=== PATIENT | male | born 1945 | race Asian ===

== ENCOUNTER 2020-12-05 08:16 | Emergency (ER) | payer MEDICARE, MEDICAID ==
[~2020-12-05] VITALS: Ht 162.6 cm; Wt 68.2 kg
[~2020-12-05 08:16] MED LIST: GLIP5 PO; LISI-892 PO; METF-444 PO; SIMV5TAB58 PO
[2020-12-05 08:37] LABS: GLUCOMETER DEV NAME(LOC) ERT.5; GLUCOSE,POINT OF CARE 356 MG/DL (70-110)
[2020-12-05] MEDS ORDERED: SODIUM CHLORIDE 0.9% 2,000 ML IV ONE (09:30)
[2020-12-05] MEDS ORDERED: INSULIN REGULAR, HUMAN 100 UNITS/ML IVP ONE (09:30)
[2020-12-05 09:57] LABS: BASOPHILS % (AUTO) 0.2 % (0.0-2.0); EOSINOPHILS % (AUTO) 1.8 % (1.0-6.0); HEMATOCRIT 39.7 % (41-53); HEMOGLOBIN 13.2 g/dL (13.5-17.5); LYMPHOCYTES # (AUTO) 1.4 K/uL (1.0-4.8); LYMPHOCYTES % (AUTO) 24.1 % (22.0-44.0); MEAN CORPUSCULAR HEMOGLOBIN 30.4 pg (26.0-34.0); MEAN CORPUSCULAR HGB CONC 33.2 G/dL (31.0-37.0); MEAN CORPUSCULAR VOLUME 92 fL (80-100); MONOCYTES # (AUTO) 0.4 K/uL (0.1-1.0); MONOCYTES % (AUTO) 6.2 % (2.0-9.0); NEUTROPHILS % (AUTO) 67.7 % (40.0-70.0); PLATELET COUNT (AUTO) 154 K/uL (150-450); RED BLOOD CELL COUNT(AUTO) 4.33 MIL/uL (4.50-5.90); RED CELL DISTRIBUTION WIDTH 12.4 % (11.5-14.5)
[2020-12-05 10:02] LABS: CALCIUM, TOTAL 9.1 mg/dL (8.8-10.5); CREATININE 1.5 mg/dL (0.60-1.30); POTASSIUM 3.7 mmol/L (3.5-5.1)
[2020-12-05 10:05] LABS: GLUCOMETER DEV NAME(LOC) ERT.5; GLUCOSE,POINT OF CARE 291 MG/DL (70-110)
[2020-12-05 10:07] LABS: ALBUMIN 4.2 g/dL (3.4-5.0); BILIRUBIN,TOTAL 0.6 mg/dL (0.1-1.0); TOTAL PROTEIN, SERUM 8.2 g/dL (6.4-8.2)
[2020-12-05 13:32] VITALS: BP 149/78
== END 2020-12-05 13:33 | disposition home or self-care (01) ==
LOC: EMS 08:16
DX: S00.83XA Contusion of other part of head, initial encounter (principal); E11.65 Type 2 diabetes mellitus with hyperglycemia; E86.0 Dehydration; R55 Syncope and collapse; E11.9 Type 2 diabetes mellitus without complications; E78.00 Pure hypercholesterolemia, unspecified; I10 Essential (primary) hypertension; Z91.14 Patient's other noncompliance with medication regimen; Z79.899 Other long term (current) drug therapy; Z79.84 Long term (current) use of oral hypoglycemic drugs; X58.XXXA Exposure to other specified factors, initial encounter; Y93.89 Activity, other specified; Y92.89 Other specified places as the place of occurrence of the external cause; Y99.8 Other external cause status
CPT/HCPCS: 36415; 71045; 80053; 82962; 84484; 85025; 93005; 96361; 96374; 99285; J1815; J7030

== ENCOUNTER 2024-03-07 06:33 | Emergency (ER) | payer MEDICARE, MEDICAID ==
[~2024-03-07] VITALS: Ht 162.6 cm; Wt 54.5 kg
[~2024-03-07 06:33] MED LIST changes: +CLOT15CR29 TP; +FINA5TAB41 PO; +GABA-1181 PO; -GLIP5 PO; +INSLAN SQ; +INSU100V SQ; -LISI-892 PO; +LOSA-381 PO; -SIMV5TAB58 PO; +TAMS0.4C94 PO; +TERA5CAP4 PO
[2024-03-07 06:41] VITALS: TEMP 98
[2024-03-07] MEDS: SODIUM CHLORIDE 0.9% 1,000 ML IV ONE (08:20)
[2024-03-07] MEDS: BACITRACIN 0.9 GM PACKET OINTMENT TP ONE (08:20)
[2024-03-07] MEDS: MORPHINE SULFATE 2 MG/ML SYRINGE IVP ONE ×2 (08:20→11:50)
[2024-03-07 08:32] LABS: BASOPHILS % (AUTO) 0.1 % (0.0-2.0); LYMPHOCYTES # (AUTO) 0.5 K/uL (1.0-4.8); MONOCYTES # (AUTO) 0.2 K/uL (0.1-1.0); MONOCYTES % (AUTO) 2.4 % (2.0-9.0)
[2024-03-07 08:44] LABS: EOSINOPHILS % (AUTO) 0.1 % (1.0-6.0); HEMATOCRIT 38.1 % (41-53); HEMOGLOBIN 13.3 g/dL (13.5-17.5); LYMPHOCYTES % (AUTO) 6.4 % (22.0-44.0); MEAN CORPUSCULAR HEMOGLOBIN 31.9 pg (26.0-34.0); MEAN CORPUSCULAR HGB CONC 34.9 G/dL (31.0-37.0); MEAN CORPUSCULAR VOLUME 91 fL (80-100); NEUTROPHILS # (AUTO) 7.6 K/uL (1.8-7.7); RED BLOOD CELL COUNT(AUTO) 4.17 MIL/uL (4.50-5.90); RED CELL DISTRIBUTION WIDTH 12.9 % (11.5-14.5); WHITE BLOOD COUNT (AUTO) 8.4 K/uL (4.5-11.0)
[2024-03-07 08:49] LABS: CALCIUM, TOTAL 8.9 mg/dL (8.8-10.5); CREATININE 1.36 mg/dL (0.60-1.30); POTASSIUM 4.6 mmol/L (3.5-5.1)
[2024-03-07 08:59] LABS: TROPONIN I-HIGH SENSITIVITY 8 ng/L (<76)
[2024-03-07] MEDS ORDERED: SODIUM CHLORIDE 0.9% 100 ML ONE (09:07)
[2024-03-07] MEDS ORDERED: IOHEXOL 350 MG/ML 100 ML VIAL ONE (09:07)
[2024-03-07 09:10] LABS: PLATELET COUNT (AUTO) 226 K/uL (150-450)
[2024-03-07] MEDS: LevETIRAcetam 1,000 MG in DEXTROSE 5%-WATER 100 ML IV ONE (09:11)
[2024-03-07 09:13] LABS: APPEARANCE,URINE CLEAR (CLEAR); BILIRUBIN,URINE NEGATIVE (NEGATIVE); COLOR,URINE COLORLESS (YELLOW); GLUCOSE, URINE (UA) >=1000 mg/dL (NEGATIVE); KETONES,URINE =>150 mg/dL (NEGATIVE); LEUKOCYTE ESTERASE ,URINE NEGATIVE (NEGATIVE); NITRATE,URINE NEGATIVE (NEGATIVE); OCCULT BLOOD,URINE NEGATIVE (NEGATIVE); PH,URINE 5.5 (5.0-8.0); PROTEIN,URINE TRACE mg/dL (NEGATIVE); SPECIFIC GRAVITIY, URINE 1.028 (1.003-1.030); UROBILINOGEN,URINE <=1.0 mg/dL (<=1.0)
[2024-03-07 09:14] LABS: ALBUMIN 3.5 g/dL (3.4-5.0); BILIRUBIN,DIRECT 0.3 mg/dL (0.00-0.20); TOTAL PROTEIN, SERUM 7.9 g/dL (6.4-8.2)
[2024-03-07 09:22] LABS: BACTERIA,URINE None Seen /HPF (None Seen); RBC,URINE None Seen /HPF (0-2); SQUAMOUS EPITHELIAL CELL,UR Few /LPF (None Seen); WBC,URINE None Seen /HPF (0-5)
[2024-03-07] MEDS: INSULIN REGULAR, HUMAN 100 UNITS/ML IVP ONE (09:59)
[2024-03-07 14:30] VITALS: BP 109/60; PULSE 70; RESP 20; O2SAT 98
== END 2024-03-07 16:29 | disposition short-term general hospital (02) ==
LOC: EMS 06:41
DX: S06.6X9A Traumatic subarachnoid hemorrhage with loss of consciousness of unspecified duration, initial encounter (principal); M25.511 Pain in right shoulder; M54.2 Cervicalgia; R07.89 Other chest pain; E11.65 Type 2 diabetes mellitus with hyperglycemia; I10 Essential (primary) hypertension; E78.00 Pure hypercholesterolemia, unspecified; Z79.4 Long term (current) use of insulin; Z79.899 Other long term (current) drug therapy; W19.XXXA Unspecified fall, initial encounter; Y93.89 Activity, other specified; Y92.89 Other specified places as the place of occurrence of the external cause; Y99.8 Other external cause status
CPT/HCPCS: 70450; 99285; 96365; 96375; 71045; 96361; 80048; 80076; 81001; 82550; 83880; 84484; 85025; 85610; 85730; 86850; 86900; 86901; 36415; 73030; 73660; 70486; 71250; 72125; 74177; 82962; 93005; 96376; J0712; Q9967; J2270; J7060; J7030; J7050